=== PATIENT | female | born 1955 | race Caucasian/White ===

== ENCOUNTER 2017-02-08 01:31 | Emergency (ER) | payer SELFPAY ==
[~2017-02-08] VITALS: Ht 170.2 cm; Wt 67.0 kg
[~2017-02-08 01:31] MED LIST: CIPR500T2 PO; LISI-586 PO; ZOFR4TAB3 SL
[2017-02-08 01:32] VITALS: BP 177/84; PULSE 110; RESP 18; TEMP 97.7; O2SAT 98
[2017-02-08] MEDS ORDERED: SODIUM CHLORIDE 0.9% FLUSH 10 ML FLUSH IVF PRN (02:00)
[2017-02-08] MEDS ORDERED: RESP: ALBUTEROL 2.5 MG/3 ML NEB (SCH) INH ONE (02:00)
[2017-02-08 02:09] LABS: AUTOMATED NEUTROPHIL # 11.6 TH/MM3 (1.8-7.7); BASOPHIL # 0.1 TH/MM3 (0-0.2); BASOPHIL % 0.6 % (0.0-2.0); EOSINOPHIL # 0.2 TH/MM3 (0-0.4); EOSINOPHIL % 1.6 % (0.0-4.0); HEMATOCRIT 45.7 % (35.0-46.0); HEMO FLAGS DIFF FINAL; LYMPHOCYTE # 1.1 TH/MM3 (1.0-4.8); MEAN CELL VOLUME 88.3 FL (80.0-100.0); MEAN CORPUSCULAR HEMOGLOBIN 29.3 PG (27.0-34.0); MEAN CORPUSCULAR HGB CONC 33.1 % (32.0-36.0); MONO % 6.4 % (0.0-8.0); NEUT % 83.4 % (16.0-70.0); PLATELET COUNT 184 TH/MM3 (150-450); RED BLOOD COUNT 5.18 MIL/MM3 (4.00-5.30); RED CELL DISTRIBUTION WIDTH 13.9 % (11.6-17.2); WHITE BLOOD COUNT 13.9 TH/MM3 (4.0-11.0)
[2017-02-08 02:26] LABS: ANION GAP 12 MEQ/L (5-15); BICARBONATE 26.4 MEQ/L (21.0-32.0); BLOOD UREA NITROGEN 16 MG/DL (7-18); CHLORIDE 103 MEQ/L (98-107); GLOMERULAR FILTRATION RATE 69 ML/MIN (>89); POTASSIUM 3.7 MEQ/L (3.5-5.1); SODIUM (NA) 141 MEQ/L (136-145)
[2017-02-08 02:31] LABS: CREATINE KINASE 71 U/L (26-192)
--- NOTE | 2017-02-08 02:37 | RADRPT ---
EXAM DATE/TIME: 02/08/2017 02:06 [facility] COMPARISON: CHEST PA & LAT, December 25, 2013, 8:32. INDICATIONS : Shortness of breath. MEDICAL HISTORY : None. SURGICAL HISTORY : None. ENCOUNTER: Initial ACUITY: 1 day PAIN SCORE: 0/10 LOCATION: Bilateral chest FINDINGS: A single view of the chest demonstrates the lungs to be symmetrically aerated without evidence of mas s, infiltrate or effusion. The cardiomediastinal contours are unremarkable. Osseous structures are intact. CONCLUSION: No acute disease. Tim Byrd MD on February 08, 2017 at 2:35 Board Certified Radiologist. This report was verified electronically.
[2017-02-08 02:41] VITALS: O2SAT 97
--- NOTE | 2017-02-08 03:04 | PD ---
HPI Chief Complaint: Abdominal Pain Time Seen by Provider: 01:47 Travel History International Travel<30 days: No Contact w/Intl Traveler<30days: No Traveled to known affect area: No History of Present Illness HPI 61 yo F complains of n/v/d. at least 10 episodes of both, non-bloody with emesis green in colo. no fever. last po was chicken, normal/not spoiled. pt took 2 xanax prior to arrival. pt also complains of shortness of breath after multiple episodes of vomiting. no chest pain. no cough. + tobaccoism. no similar prior events. pt denies hx COPD. PFSH Past Medical History Anxiety: Yes Diminished Hearing: No Hypertension: Yes Tetanus Vaccination: Unknown Influenza Vaccination: No Past Surgical History Appendectomy: Yes Cholecystectomy: Yes Hysterectomy: Yes Tonsillectomy: Yes Social History Alcohol Use: No Tobacco Use: No Substance Use: No Allergies-Medications (Allergen,Severity, Reaction): Coded Allergies: sulfamethoxazole (Unverified Allergy, Severe, SOB, 11/22/16) trimethoprim (Unverified Allergy, Severe, SOB, 11/22/16) Reported Meds & Prescriptions Reported Meds & Active Scripts Active Zofran ODT (Ondansetron HCl) 4 Mg Tab 4 Mg SL Q6 FOR NAUSEA/VOMITING Ciprofloxacin Hcl 500 Mg Tab 500 Mg PO BID Reported Zestoretic 20/12.5 (Lisinopril/Hctz 20 mg/12.5 mg) 20 Mg/12.5 Mg Tab 1 Tab PO DAILY Review of Systems Except as stated in HPI: all other systems reviewed are Neg Physical Exam Narrative GENERAL: 61 yo F, WNWD, speaking full sentences SKIN: Warm and dry. HEAD: Atraumatic. Normocephalic. EYES: Pupils equal and round. No scleral icterus. No injection or drainage. ENT: No nasal bleeding or discharge. Mucous membranes pink and moist. NECK: Trachea midline. No JVD. CARDIOVASCULAR: RESPIRATORY: Lungs clear. Speaking full sentences. No significant tachypnea. GASTROINTESTINAL: Abdomen soft, non-tender, nondistended. Hepatic and splenic margins not palpable. MUSCULOSKELETAL: Extremities without clubbing, cyanosis, or edema. No obvious deformities. NEUROLOGICAL: Awake and alert. No obvious cranial nerve deficits. Motor grossly within normal limits. Five out of 5 muscle strength in the arms and legs. Normal speech. PSYCHIATRIC: Appropriate mood and affect; insight and judgment normal. Data Data Last Documented VS Vital Signs Date Time Temp Pulse Resp B/P (MAP) Pulse Ox O2 Delivery O2 Flow Rate FiO2 02/08/17 02:41 97 21 02/08/17 01:32 97.7 110 18 177/84 (115) Room Air Orders Orders Complete Blood Count With Diff (02/08/17 01:47) Basic Metabolic Panel (Bmp) (02/08/17 01:47) B-Type Natriuretic Peptide (02/08/17 01:47) D-Dimer (02/08/17 01:47) Ckmb (Isoenzyme) Profile (02/08/17 01:47) Troponin I (02/08/17 01:47) Urinalysis - C+S If Indicated (02/08/17 01:47) Iv Access Insert/Monitor (02/08/17 01:47) Electrocardiogram (02/08/17 01:47) Ecg Monitoring (02/08/17 01:47) Oximetry (02/08/17 01:47) Oxygen Administration (02/08/17 01:47) Chest, Single Ap (02/08/17 01:47) Sodium Chloride 0.9% Flush (Ns Flush) (02/08/17 02:00) Albuterol Neb (Albuterol Neb) (02/08/17 02:00) Labs Laboratory Tests Test 02/08/17 01:50 White Blood Count 13.9 TH/MM3 Red Blood Count 5.18 MIL/MM3 Hemoglobin 15.2 GM/DL Hematocrit 45.7 % Mean Corpuscular Volume 88.3 FL Mean Corpuscular Hemoglobin 29.3 PG Mean Corpuscular Hemoglobin Concent 33.1 % Red Cell Distribution Width 13.9 % Platelet Count 184 TH/MM3 Mean Platelet Volume 9.2 FL Neutrophils (%) (Auto) 83.4 % Lymphocytes (%) (Auto) 8.0 % Monocytes (%) (Auto) 6.4 % Eosinophils (%) (Auto) 1.6 % Basophils (%) (Auto) 0.6 % Neutrophils # (Auto) 11.6 TH/MM3 Lymphocytes # (Auto) 1.1 TH/MM3 Monocytes # (Auto) 0.9 TH/MM3 Eosinophils # (Auto) 0.2 TH/MM3 Basophils # (Auto) 0.1 TH/MM3 CBC Comment DIFF FINAL Differential Comment D-Dimer Quantitative (PE/DVT) 0.49 MG/L FEU Blood Urea Nitrogen 16 MG/DL Creatinine 0.84 MG/DL Random Glucose 169 MG/DL Calcium Level 9.7 MG/DL Sodium Level 141 MEQ/L Potassium Level 3.7 MEQ/L Chloride Level 103 MEQ/L Carbon Dioxide Level 26.4 MEQ/L Anion Gap 12 MEQ/L Estimat Glomerular Filtration Rate 69 ML/MIN Total Creatine Kinase 71 U/L Troponin I LESS THAN 0.02 NG/ML B-Type Natriuretic Peptide 32 PG/ML MDM Medical Decision Making Medical Screen Exam Complete: Yes Emergency Medical Condition: Yes Medical Record Reviewed: Yes Differential Diagnosis COPD, anemia, acs, gastroenteritis Narrative Course CBC & BMP Diagram 02/08/17 01:50 Calcium Level 9.7 CXR: NACPD Pt received nebs x 3 and reports feeling much better. She reports her son smokes indoors at home and her did as well. ? COPD Blood work and CXR reassuring. Follow up with PMD, Idania Quintana. pt states she'll follow up with PMD for further evaluation Diagnosis Primary Impression: Dyspnea Qualified Codes: R06.00 - Dyspnea, unspecified Additional Impression: Nausea vomiting and diarrhea Referrals: Primary Care Physician call for appointment Additional Instructions: You have a choice when it comes to health care, and we are glad that you chose [facility]. Hopefully, we have met your expectations on today's visit. You are welcome to return to [facility] at any time, as we are committed to meeting the health care needs of our community. Med/Other Pt SpecificInfo: Prescription(s) given Scripts Ondansetron Odt (Zofran Odt) 4 Mg Tab 4 MG SL Q8HR Y for Nausea/Vomiting, #15 TAB 0 Refills Prov: Jesse Sinha MD 02/08/17 Albuterol 8.5 GM Inh (Proair Hfa 8.5 GM Inh) 90 Mcg/Act Aer 2 PUFF INH Q4-6H Y for SHORTNESS OF BREATH, #1 INHALER 0 Refills 108 mcg/actuation Prov: Jesse Sinha MD 02/08/17 Disposition: DISCHARGE HOME Condition: Stable Jesse Sinha MD Feb 08, 2017 03:04
[2017-02-08] MEDS ORDERED: ALBUAER3 INH (03:19)
[2017-02-08] MEDS ORDERED: ZOFR4TAB3 SL (03:19)
[2017-02-08 03:36] VITALS: BP 108/63
[2017-02-08] MEDS ORDERED: XANA1TAB2 PO (03:37)
[2017-02-08] MEDS ORDERED: LOVA20TA PO (03:37)
[2017-02-08] MEDS ORDERED: METF1000 PO (03:37)
[2017-02-08] MEDS ORDERED: LISI-515 PO (03:37)
== END 2017-02-08 03:43 | disposition home or self-care (01) ==
LOC: NEPC 01:31
DX: R11.2 Nausea with vomiting, unspecified (principal); R06.02 Shortness of breath; F41.9 Anxiety disorder, unspecified; I10 Essential (primary) hypertension; Z79.899 Other long term (current) drug therapy; Z88.2 Allergy status to sulfonamides; Z88.8 Allergy status to other drugs, medicaments and biological substances
CPT/HCPCS: 71010; 80048; 82550; 83880; 84484; 85025; 85379; 94664; 99284; J7613

== ENCOUNTER 2017-07-08 11:00 | Emergency (ER) | payer SELFPAY ==
[~2017-07-08] VITALS: Ht 170.2 cm; Wt 67.0 kg
[~2017-07-08 11:00] MED LIST changes: +ALBUAER3 INH; -CIPR500T2 PO; +LISI-515 PO; -LISI-586 PO; +LOVA20TA PO; +METF1000 PO; +XANA1TAB2 PO
[2017-07-08 11:03] VITALS: BP 227/111; PULSE 91; RESP 16; TEMP 98.6; O2SAT 99
[2017-07-08] MEDS ORDERED: SODIUM CHLOR 0.9% 1000 ML INJ 1,000 ML IV SCH (11:24)
[2017-07-08 11:27] VITALS: RESP 20; O2SAT 99
[2017-07-08 11:28] VITALS: BP_SYST 198; BP_SYST 211; BP_DIAS 121; BP_DIAS 98; PULSE 87; RESP 16; O2SAT 99
[2017-07-08] MEDS ORDERED: ONDANSETRON HCL 4 MG/2 ML VIAL IVP ONE (11:30)
[2017-07-08] MEDS ORDERED: KETOROLAC TROMETHAMINE 30 MG/ML (IVP) VIAL IVP ONE (11:30)
[2017-07-08] MEDS ORDERED: SODIUM CHLORIDE 0.9% FLUSH 10 ML FLUSH IV FLUSH PRN (11:30)
[2017-07-08 11:51] LABS: AUTOMATED NEUTROPHIL # 2.2 TH/MM3 (1.8-7.7); BASOPHIL % 0.8 % (0.0-2.0); EOSINOPHIL # 0.2 TH/MM3 (0-0.4); EOSINOPHIL % 4.5 % (0.0-4.0); HEMOGLOBIN 13.8 GM/DL (11.6-15.3); LYMPH % 38.6 % (9.0-44.0); LYMPHOCYTE # 1.8 TH/MM3 (1.0-4.8); MEAN CELL VOLUME 85.8 FL (80.0-100.0); MEAN CORPUSCULAR HEMOGLOBIN 28.9 PG (27.0-34.0); MEAN CORPUSCULAR HGB CONC 33.7 % (32.0-36.0); MEAN PLATELET VOLUME 8.7 FL (7.0-11.0); MONO % 8.4 % (0.0-8.0); MONOCYTE # 0.4 TH/MM3 (0-0.9); NEUT % 47.7 % (16.0-70.0); PLATELET COUNT 139 TH/MM3 (150-450); RED BLOOD COUNT 4.79 MIL/MM3 (4.00-5.30); RED CELL DISTRIBUTION WIDTH 13.2 % (11.6-17.2); WHITE BLOOD COUNT 4.7 TH/MM3 (4.0-11.0)
--- NOTE | 2017-07-08 11:56 | PD ---
HPI Chief Complaint: Back/ Neck Pain or Injury Time Seen by Provider: 11:16 Travel History International Travel<30 days: No Contact w/Intl Traveler<30days: No Traveled to known affect area: No History of Present Illness HPI 61-year-old female presents emergency department for evaluation of cough and chest congestion worsening over the last 3 days. Patient states she has been has significant back pain with this. She also has a neck tightness and intermittent left arm numbness. This is been ongoing for months. She has not had any new injuries. This has been evaluated outpatient. She denies any fever or chills. She has had nausea and vomiting. She began having diarrhea this morning. No hematemesis. No hematochezia. She has no other symptoms to report. PFS Past Medical History Anxiety: Yes Cardiovascular Problems: Yes (HTN ) Diabetes: Yes (TYPE 2 ) Patient Takes Glucophage: Yes Diminished Hearing: No Hypertension: Yes Tetanus Vaccination: < 5 Years Influenza Vaccination: No : 1 Para: 1 Miscarriage: 0 : 0 Past Surgical History Appendectomy: Yes Cholecystectomy: Yes Hysterectomy: Yes Tonsillectomy: Yes Social History Alcohol Use: No Tobacco Use: No Substance Use: No Allergies-Medications (Allergen,Severity, Reaction): Coded Allergies: sulfamethoxazole (Unverified Allergy, Severe, SOB, 07/08/17) trimethoprim (Unverified Allergy, Severe, SOB, 07/08/17) Reported Meds & Prescriptions Reported Meds & Active Scripts Active Omeprazole 40 Mg Cap 40 Mg PO DAILY Mobic (Meloxicam) 15 Mg Tab 15 Mg PO DAILY PRN 7 Days Zofran Odt (Ondansetron Odt) 4 Mg Tab 4 Mg SL Q6HR PRN Reported Xanax (Alprazolam) 1 Mg Tab 1 Mg PO TID PRN Lovastatin 20 Mg Tab 20 Mg PO DAILY Metformin (Metformin HCl) 1,000 Mg Tab 250 Mg PO DAILY With a meal Lisinopril 20 Mg Tab 20 Mg PO DAILY Review of Systems Except as stated in HPI: all other systems reviewed are Neg Physical Exam Narrative GENERAL: Well-nourished female patient, in no acute distress. SKIN: Focused skin assessment warm/dry. HEAD: Atraumatic. Normocephalic. EYES: Pupils equal and round. No scleral icterus. No injection or drainage. ENT: No nasal bleeding or discharge. Mucous membranes pink and moist. NECK: Trachea midline. No JVD. CARDIOVASCULAR: Regular rate and rhythm. No murmur appreciated. RESPIRATORY: No accessory muscle use. Clear to auscultation. Breath sounds equal bilaterally. GASTROINTESTINAL: Abdomen soft, non-tender, nondistended. Hepatic and splenic margins not palpable. MUSCULOSKELETAL: No obvious deformities. No clubbing. No cyanosis. No edema. 5+ strength equal bilateral extremities. Tenderness elicited to palpation along the trapezius musculature. NEUROLOGICAL: Awake and alert. No obvious cranial nerve deficits. Motor grossly within normal limits. Normal speech. PSYCHIATRIC: Appropriate mood and affect; insight and judgment normal. Data Data Last Documented VS Vital Signs Date Time Temp Pulse Resp B/P (MAP) Pulse Ox O2 Delivery O2 Flow Rate FiO2 07/08/17 13:28 72 16 168/89 (115) 96 07/08/17 11:28 Room Air 07/08/17 11:03 98.6 Orders Orders Complete Blood Count With Diff (07/08/17 11:24) Comprehensive Metabolic Panel (07/08/17 11:24) Lipase (07/08/17 11:24) Prothrombin Time / Inr (Pt) (07/08/17 11:24) Act Partial Throm Time (Ptt) (07/08/17 11:24) Urinalysis - C+S If Indicated (07/08/17 11:24) Iv Access Insert/Monitor (07/08/17 11:24) Ecg Monitoring (07/08/17 11:24) Oximetry (07/08/17 11:24) Ondansetron Inj (Zofran Inj) (07/08/17 11:30) Sodium Chlor 0.9% 1000 Ml Inj (Ns 1000 M (07/08/17 11:24) Sodium Chloride 0.9% Flush (Ns Flush) (07/08/17 11:30) Electrocardiogram (07/08/17 11:24) Chest, Single Ap (07/08/17 11:24) Ketorolac Inj (Toradol Inj) (07/08/17 11:30) Influenzae A/B Antigen (07/08/17 11:24) Ckmb (Isoenzyme) Profile (07/08/17 11:24) Troponin I (07/08/17 11:24) Urine Culture (3/31/18 11:30) Ed Discharge Order (07/08/17 13:05) Labs Laboratory Tests Test 07/08/17 11:30 White Blood Count 4.7 TH/MM3 Red Blood Count 4.79 MIL/MM3 Hemoglobin 13.8 GM/DL Hematocrit 41.0 % Mean Corpuscular Volume 85.8 FL Mean Corpuscular Hemoglobin 28.9 PG Mean Corpuscular Hemoglobin Concent 33.7 % Red Cell Distribution Width 13.2 % Platelet Count 139 TH/MM3 Mean Platelet Volume 8.7 FL Neutrophils (%) (Auto) 47.7 % Lymphocytes (%) (Auto) 38.6 % Monocytes (%) (Auto) 8.4 % Eosinophils (%) (Auto) 4.5 % Basophils (%) (Auto) 0.8 % Neutrophils # (Auto) 2.2 TH/MM3 Lymphocytes # (Auto) 1.8 TH/MM3 Monocytes # (Auto) 0.4 TH/MM3 Eosinophils # (Auto) 0.2 TH/MM3 Basophils # (Auto) 0.0 TH/MM3 CBC Comment DIFF FINAL Differential Comment Prothrombin Time 10.0 SEC Prothromb Time International Ratio 1.0 RATIO Activated Partial Thromboplast Time 25.5 SEC Urine Color LIGHT-YELLOW Urine Turbidity HAZY Urine pH 7.0 Urine Specific [place] 1.005 Urine Protein NEG mg/dL Urine Glucose (UA) NEG mg/dL Urine Ketones NEG mg/dL Urine Occult Blood NEG Urine Nitrite NEG Urine Bilirubin NEG Urine Urobilinogen LESS THAN 2.0 MG/DL Urine Leukocyte Esterase LARGE Urine RBC 2 /hpf Urine WBC 11 /hpf Urine Squamous Epithelial Cells 20 /hpf Urine Amorphous Sediment FEW Urine Bacteria OCC /hpf Microscopic Urinalysis Comment CULTURE INDICATED Blood Urea Nitrogen 9 MG/DL Creatinine 0.73 MG/DL Random Glucose 145 MG/DL Total Protein 7.3 GM/DL Albumin 3.8 GM/DL Calcium Level 8.9 MG/DL Alkaline Phosphatase 90 U/L Aspartate Amino Transf (AST/SGOT) 13 U/L Alanine Aminotransferase (ALT/SGPT) 19 U/L Total Bilirubin 0.4 MG/DL Sodium Level 139 MEQ/L Potassium Level 3.3 MEQ/L Chloride Level 104 MEQ/L Carbon Dioxide Level 28.7 MEQ/L Anion Gap 6 MEQ/L Estimat Glomerular Filtration Rate 81 ML/MIN Total Creatine Kinase 67 U/L Troponin I 0.02 NG/ML Lipase 192 U/L [facility] Medical Decision Making Medical Screen Exam Complete: Yes Emergency Medical Condition: Yes Medical Record Reviewed: Yes Differential Diagnosis Muscle strain versus neuropathy versus paresthesia versus gastritis versus gastroenteritis versus colitis versus diverticulitis Narrative Course 61-year-old female presents emergency department for evaluation. Patient appears well and without distress. Her vital signs are stable. Chest x-rays without acute cardiopulmonary disease. Laboratory Tests Test 07/08/17 11:30 White Blood Count 4.7 TH/MM3 Red Blood Count 4.79 MIL/MM3 Hemoglobin 13.8 GM/DL Hematocrit 41.0 % Mean Corpuscular Volume 85.8 FL Mean Corpuscular Hemoglobin 28.9 PG Mean Corpuscular Hemoglobin Concent 33.7 % Red Cell Distribution Width 13.2 % Platelet Count 139 TH/MM3 Mean Platelet Volume 8.7 FL Neutrophils (%) (Auto) 47.7 % Lymphocytes (%) (Auto) 38.6 % Monocytes (%) (Auto) 8.4 % Eosinophils (%) (Auto) 4.5 % Basophils (%) (Auto) 0.8 % Neutrophils # (Auto) 2.2 TH/MM3 Lymphocytes # (Auto) 1.8 TH/MM3 Monocytes # (Auto) 0.4 TH/MM3 Eosinophils # (Auto) 0.2 TH/MM3 Basophils # (Auto) 0.0 TH/MM3 CBC Comment DIFF FINAL Differential Comment Prothrombin Time 10.0 SEC Prothromb Time International Ratio 1.0 RATIO Activated Partial Thromboplast Time 25.5 SEC Urine Color LIGHT-YELLOW Urine Turbidity HAZY Urine pH 7.0 Urine Specific [place] 1.005 Urine Protein NEG mg/dL Urine Glucose (UA) NEG mg/dL Urine Ketones NEG mg/dL Urine Occult Blood NEG Urine Nitrite NEG Urine Bilirubin NEG Urine Urobilinogen LESS THAN 2.0 MG/DL Urine Leukocyte Esterase LARGE Urine RBC 2 /hpf Urine WBC 11 /hpf Urine Squamous Epithelial Cells 20 /hpf Urine Amorphous Sediment FEW Urine Bacteria OCC /hpf Microscopic Urinalysis Comment CULTURE INDICATED Blood Urea Nitrogen 9 MG/DL Creatinine 0.73 MG/DL Random Glucose 145 MG/DL Total Protein 7.3 GM/DL Albumin 3.8 GM/DL Calcium Level 8.9 MG/DL Alkaline Phosphatase 90 U/L Aspartate Amino Transf (AST/SGOT) 13 U/L Alanine Aminotransferase (ALT/SGPT) 19 U/L Total Bilirubin 0.4 MG/DL Sodium Level 139 MEQ/L Potassium Level 3.3 MEQ/L Chloride Level 104 MEQ/L Carbon Dioxide Level 28.7 MEQ/L Anion Gap 6 MEQ/L Estimat Glomerular Filtration Rate 81 ML/MIN Total Creatine Kinase 67 U/L Troponin I 0.02 NG/ML Lipase 192 U/L Lab work is reviewed and discussed with my attending physician. Physical exam and history are consistent with gastroenteritis. Patient continued outpatient workup for her left shoulder pain. Patient is counseled on care. She agrees to return immediately with any acute worsening symptoms. Diagnosis Primary Impression: Gastroenteritis Additional Impression: Left shoulder pain Qualified Codes: M25.512 - Pain in left shoulder Referrals: Primary Care Physician Patient Instructions: Gastroenteritis (ED), General Instructions Departure Forms: Tests/Procedures, Work Release Enter return to work date: Jul 11, 2017 Additional Instructions: [place] diet Start clear liquids and advance as tolerated Follow-up with a primary care provider Return immediately with any acute worsening symptoms Med/Other Pt SpecificInfo: Prescription(s) given Scripts Omeprazole (Omeprazole) 40 Mg Cap 40 MG PO DAILY, #7 CAP 0 Refills Prov: Radha May 07/08/17 Meloxicam (Mobic) 15 Mg Tab 15 MG PO DAILY Y for PAIN SCALE 1 TO 10 for 7 Days, #7 TAB 0 Refills Prov: Radha May 07/08/17 Ondansetron Odt (Zofran Odt) 4 Mg Tab 4 MG SL Q6HR Y for Nausea/Vomiting, #15 TAB 0 Refills Prov: Radha May 07/08/17 Disposition: 01 DISCHARGE HOME Condition: Stable Radha May Jul 08, 2017 11:56
--- NOTE | 2017-07-08 12:00 | RADRPT ---
EXAM DATE/TIME: 07/08/2017 11:29 [facility] COMPARISON: CHEST SINGLE AP, February 08, 2017, 2:06. INDICATIONS : Fever. Left arm pain. MEDICAL HISTORY : None. SURGICAL HISTORY : None. ENCOUNTER: Initial ACUITY: 1 week PAIN SCORE: 5/10 LOCATION: Bilateral chest FINDINGS: A single view of the chest demonstrates the lungs to be symmetrically aerated without evidence of mas s, infiltrate or effusion. The cardiomediastinal contours are unremarkable. Osseous structures are intact. CONCLUSION: No acute disease. There is no evidence of pneumonia. Vinny Bowers MD on July 08, 2017 at 11:57 Board Certified Radiologist. This report was verified electronically.
[2017-07-08 12:09] LABS: AMORPHOUS SEDIMENT, URINE FEW; BACTERIA, URINE OCC /hpf; BILIRUBIN, URINE NEG (NEG); BLOOD, URINE NEG (NEG); GLUCOSE,URINE NEG (NEG); KETONE, URINE NEG (NEG); NITRITE,URINE NEG (NEG); SQUAMOUS EPITHELIAL CELL URINE 20 /hpf (0-5); URINE COLOR LIGHT-YELLOW (YELLW/STRAW); URINE LEUKOCYTE ESTERASE LARGE (NEG)
[2017-07-08 12:17] LABS: ALBUMIN 3.8 GM/DL (3.4-5.0); BICARBONATE 28.7 MEQ/L (21.0-32.0); BLOOD UREA NITROGEN 9 MG/DL (7-18); CALCIUM 8.9 MG/DL (8.5-10.1); CHLORIDE 104 MEQ/L (98-107); CREATININE 0.73 MG/DL (0.50-1.00); GLOMERULAR FILTRATION RATE 81 ML/MIN (>89); GLUCOSE,RANDOM 145 MG/DL (74-106); SODIUM (NA) 139 MEQ/L (136-145)
[2017-07-08 12:18] LABS: AST (GOT) 13 U/L (15-37)
[2017-07-08 12:24] LABS: ALKALINE PHOSPHATASE 90 U/L (45-117); ALT (GPT) 19 U/L (10-53); TOTAL BILIRUBIN ADULT 0.4 MG/DL (0.2-1.0); TOTAL PROTEIN 7.3 GM/DL (6.4-8.2); TROPONIN I 0.02 NG/ML (0.02-0.05)
[2017-07-08] MEDS ORDERED: MOBI15TA PO (13:07)
[2017-07-08] MEDS ORDERED: OMEP40CA2 PO (13:07)
[2017-07-08] MEDS ORDERED: ZOFR4TAB3 SL (13:07)
[2017-07-08 13:25] VITALS: RESP 20
[2017-07-08 13:28] VITALS: BP 168/89
--- NOTE | 2017-07-08 14:51 | EKG ---
Date Performed: 07/08/2017 Time Performed: 11:39:38 PTAGE: 61 years EKG: Sinus rhythm NORMAL ECG Since the PREVIOUS TRACING , no significant change noted PREVIOUS TRACIN08/12/2014 23.31 DOCTOR: Juvenal Palma Interpretating Date/Time 07/08/2017 14:49:12
== END 2017-07-08 13:30 | disposition home or self-care (01) ==
LOC: NEPE 11:00
DX: K52.9 Noninfective gastroenteritis and colitis, unspecified (principal); M25.512 Pain in left shoulder; R05 Cough; R09.81 Nasal congestion; M54.9 Dorsalgia, unspecified; R20.0 Anesthesia of skin; F41.9 Anxiety disorder, unspecified; I10 Essential (primary) hypertension; E11.9 Type 2 diabetes mellitus without complications
CPT/HCPCS: 71045; 80053; 81001; 82550; 83690; 84484; 85025; 85610; 85730; 87086; 87804; 93005; 96361; 96374; 96375; 99285; J1885; J2405; J7030